=== PATIENT | female | born 1985 | race Caucasian/White ===

== ENCOUNTER 2017-04-21 16:55 | Emergency (ER) | payer OTHER, SELFPAY ==
[2017-04-21 17:27] LABS: Bilirubin Negative (Negative); Blood, Urine Negative (Negative); Clarity Clear (Clear); Glucose, Urine (Dipstick) Negative (Negative); Leukocyte Negative (Negative); Nitrite Negative (Negative); Protein, Urine (Dipstick) Negative (Neg-Trace); Urobilinogen 0.2 mg/dL (0.2-1.0)
[2017-04-21 17:28] LABS: Pregnancy Test - Urine (BHCG) Negative (Negative); Pregu Control Background? CLEAR/WHITE (CLR/WHITE); Pregu Control Bar Appear? YES (CONTROL BAR)
[2017-04-21] MEDS ORDERED: Ketorolac Tromethamine 30 MG/ML VIAL ONE (17:40)
[2017-04-21 18:13] LABS: #Basophils 0.1 thou/uL (0.0-0.2); #Eosinphils 0.1 thou/uL (0.0-0.7); #Lymphocytes 2.9 thou/uL (1.20-3.40); #Monocytes 0.5 thou/uL (0.11-0.59); #Neutrophils 3.3 thou/uL (1.40-6.50); %Basophils 0.9 % (0.0-1.0); %Eosinophils 1.3 % (0.0-10.0); %Lymphocytes 42.6 % (21.0-51.0); %Monocytes 7.2 % (0.0-10.0); Hemoglobin 13.7 g/dL (12.0-16.0); Mean Corpuscular HGB CONC 34.3 g/dL (32.0-36.0); Mean Corpuscular Hemoglobin 30.5 pg (27.0-31.0); Mean Corpuscular Volume 88.9 fl (81.0-99.0); Mean Platelet Volume 8.6 fL (7.4-10.4); Platelet Count 301 thou/uL (130-400); RBC Distribution Width 11.2 % (11.5-14.5); Red Blood Cell (RBC) Count 4.48 mill/uL (4.20-5.40); White Blood Cell (WBC) Count 6.8 thou/uL (4.8-10.8)
[2017-04-21 18:33] LABS: ALT (SGPT) 19 U/L (8-55); AST (SGOT) 17 U/L (5-34); Albumin 4.3 g/dL (3.5-5.0); Alkaline Phosphatase 75 U/L (40-150); Anion Gap 13 mmol/L (10-20); BUN (Urea Nitrogen) 5 mg/dL (7.0-18.7); Bilirubin, Total 0.3 mg/dL (0.2-1.2); Calc. Creatinine Clearance 0 mL/min (70-130); Calcium 8.9 mg/dL (7.8-10.44); Carbon Dioxide 25 mmol/L (22-29); Chloride 105 mmol/L (98-107); Estimated GFR-MDRD 88; Globulin 2.8 g/dL (2.4-3.5); Glucose 86 mg/dL (70-105); Lipase 26 U/L (8-78); Potassium 3.7 mmol/L (3.5-5.1); Protein, Total 7.1 g/dL (6.0-8.3); Sodium 139 mmol/L (136-145)
--- NOTE | 2017-04-21 18:42 | CT ---
CT ABDOMEN AND PELVIS WITHOUT CONTRAST 04/21/17 HISTORY: 31-year-old female with right sided abdominal pain, dysuria. FINDINGS: comparison made with exam dated 07/31/13. The lung bases are clear. The patient is post cholecystectomy. No free air or free fluid is seen in t he abdomen or pelvis. A normal appearing appendix is present. Uterus and ovaries are noted. There is a tiny calculus in the inferior pole of the left kidney. No calculi seen in the right kidney , either ureter or the urinary bladder. No hydroureteronephrosis noted on either side. There are mild degenerative changes in the lower lumbar spine. IMPRESSION: 1. Tiny nonobstructing left renal calculus. 2. No evidence of appendicitis. POS: [facility]
== END 2017-04-21 18:40 | disposition home or self-care (01) ==
LOC: SCSER 16:55
DX: R10.11 Right upper quadrant pain (principal); F41.9 Anxiety disorder, unspecified; F32.9 Major depressive disorder, single episode, unspecified; Z79.899 Other long term (current) drug therapy
CPT/HCPCS: 74176; 80053; 81003; 81025; 83690; 85025; 96372; J1885

== ENCOUNTER 2017-11-01 20:24 | Emergency (ER) | payer OTHER ==
[2017-11-01] MEDS ORDERED: Cyclobenzaprine 10 MG TAB ONE (20:41)
[2017-11-01] MEDS ORDERED: Ibuprofen 200 MG TAB ONE (20:41)
[2017-11-01 21:01] LABS: Bilirubin Negative (Negative); Blood, Urine Negative (Negative); Clarity Clear (Clear); Glucose, Urine (Dipstick) Negative (Negative); Leukocyte Negative (Negative); Nitrite Negative (Negative); Protein, Urine (Dipstick) Negative (Neg-Trace); Specific Gravity, Urine 1.015 (1.005-1.030); Urobilinogen 0.2 mg/dL (0.2-1.0)
--- NOTE | 2017-11-01 21:26 | RAD ---
THREE VIEWS LUMBAR SPINE: 11/01/17 HISTORY: Back pain. Worse yesterday. AP, lateral, and cone down views lumbar spine is obtained. Images demonstrate surgical clips seen in the gallbladder fossa. Five nonribbearing lumbar vertebrae are seen. No evidence of acute fractures o r bony lesions seen. IMPRESSION: Normal three views lumbar spine. POS: [facility]
== END 2017-11-01 21:26 | disposition home or self-care (01) ==
LOC: SCSER 20:24
DX: M54.5 Low back pain (principal)
CPT/HCPCS: 72100; 81003

== ENCOUNTER 2018-03-06 14:44 | Outpatient (CLI) | payer OTHER ==
--- NOTE | 2018-03-06 15:18 | RAD ---
RIGHT FOOT THREE VIEWS: History: Foot pain. FINDINGS: Tarsals appear intact. Tarsal metatarsal alignment is normal. Metatarsals and phalanges appear intact . MTP and IP joints are unremarkable. On the AP projection only, there is an oblique linear lucency extending across the shaft of the proxi mal phalanx of the fifth toe. This was not seen on the oblique or lateral view and is felt to be jonathan factual. However, if there is pain and injury at the right 5th toe, recommend dedicated views of the right 5th toe to further evaluation. IMPRESSION: No evidence of acute abnormality. There is a questionable oblique lucency involving the proximal phal anx of the fifth toe as discussed above. POS: [facility]
== END 2018-03-06 14:45 | disposition home or self-care (01) ==
LOC: RAD-FRANK 14:44
PROVIDERS: ATTEND Nurse Practitioner Family
DX: S99.921A Unspecified injury of right foot, initial encounter (principal)

== ENCOUNTER 2018-04-23 08:11 | Outpatient (CLI) | payer OTHER ==
--- NOTE | 2018-04-23 11:26 | ULT ---
RIGHT BREAST ULTRASOUND: HISTORY: Palpable mass in the retroareolar position of the right breast slightly towards 12 o'clock. COMPARISON: Mammogram of 04/23/2018. TECHNIQUE: Multiplanar, amaya scale, and color Doppler images were obtained in a targeted ultrasound of the right breast. FINDINGS: In the retroareolar position of the right breast at the 12 o'clock position, there is a large anechoi c cyst with increased through transmission measuring 2.4 cm in greatest dimension. This corresponds to the mammographic abnormality. Two smaller adjacent anechoic cysts are seen. No suspicious mass o r shadowing is seen. IMPRESSION: BIRADS category 2 - benign findings. Annual screening mammography is recommended at the age of 40. POS: [facility]
--- NOTE | 2018-04-23 13:42 | MMO ---
MAMMO Bilat Diag [facility]AVED. CLINICAL HISTORY: Patient is 32 years old and is seen for diagnostic exam and lump or thickening in the right breast. The patient has no family history of breast cancer. The patient has no personal history of cancer. VIEWS: The views performed were: bilateral craniocaudal with tomosynthesis; bilateral mediolateral oblique with tomosynthesis; bilateral mediolateral; and bilateral exaggerated craniocaudal. FILMS COMPARED: The present examination has been compared to a prior imaging study performed at [facility] on 04/23/2018. MAMMOGRAM FINDINGS: There are scattered fibroglandular densities. There is a round mass with circumscribed margins seen in the central region of the right breast. The mass was shown to be a cyst on ultrasound. There are no suspicious masses, calcifications or areas of architectural distortion. IMPRESSION: MASS IN THE RIGHT BREAST IS BENIGN. A ROUTINE FOLLOW-UP MAMMOGRAM AT AGE 39 IS RECOMMENDED. THE RESULTS OF THIS EXAM WERE SENT TO THE PATIENT. ACR BI-RADS Category 2 - Benign finding MAMMOGRAPHY NOTE: 1. A negative mammogram report should not delay a biopsy if a dominant of clinically suspicious mass is present. 2. Approximately 10% to 15% of breast cancers are not detected by mammography. 3. Adenosis and dense breasts may obscure an underlying neoplasm.
== END 2018-04-23 08:12 | disposition home or self-care (01) ==
LOC: BICMAMMO 08:11
DX: N63.10 Unspecified lump in the right breast, unspecified quadrant (principal)
CPT/HCPCS: 77066; G0279

== ENCOUNTER 2019-03-07 07:48 | Outpatient (CLI) | payer OTHER ==
--- NOTE | 2019-03-07 09:30 | CT ---
CT ABDOMEN AND PELVIS WITH AND WITHOUT CONTRAST: Date: 03/07/2019 INDICATION: Lower abdominal pain. History of hysterectomy and cholecystectomy. Comparison made to CT scan abdomen and pelvis without contrast dated 04/21/2017. FINDINGS: Lung bases are clear. Liver, spleen, and pancreas are unremarkable. Stomach and duodenum unremarkable. Adrenal glands appear normal. Kidneys unremarkable. There is a tiny nonobstructing calculus in the upper pole collecting structures of the left kidney, w hich was present in 2018, and measures in the 2-3 mm range. No obstructing ureteral calculus. No hydr onephrosis. Urinary bladder is mildly distended and unremarkable in appearance. Small bowel loops appear normal. Colon unremarkable. Aorta normal caliber. Nonspecific retroperitonea l lymph nodes have a similar appearance to the prior study. Images through the pelvis show evidence of hysterectomy. IMPRESSION: 1. Tiny, nonobstructing calculus in the upper collecting structures of the left kidney, stable from 2018. 2. No acute intra-abdominal process identified. POS: [facility]
[2019-03-07] MEDS ORDERED: Iopamidol-370 76% 500 ML 1 ML ONE (14:26)
== END 2019-03-07 07:49 | disposition home or self-care (01) ==
LOC: BICCT 07:48
PROVIDERS: ATTEND Obstetrics & Gynecology
DX: K40.90 Unilateral inguinal hernia, without obstruction or gangrene, not specified as recurrent (principal); N20.0 Calculus of kidney
CPT/HCPCS: 74178; Q9967

== ENCOUNTER 2020-03-07 16:11 | Emergency (ER) | payer OTHER, SELFPAY ==
[2020-03-07] MEDS ORDERED: Morphine 4 MG/ML VIAL ONE (16:47)
[2020-03-07] MEDS ORDERED: Ondansetron PF 4 MG/2 ML Vial ONE (16:47)
[2020-03-07 16:50] LABS: #Basophils 0.1 thou/uL (0.0-0.2); #Eosinphils 0.1 thou/uL (0.0-0.7); #Lymphocytes 3.4 thou/uL (1.20-3.40); #Monocytes 0.5 thou/uL (0.11-0.59); #Neutrophils 3.9 thou/uL (1.40-6.50); %Basophils 0.8 % (0.0-1.0); %Eosinophils 0.9 % (0.0-10.0); %Lymphocytes 42.9 % (21.0-51.0); %Monocytes 5.8 % (0.0-10.0); %Neutrophils 49.6 % (42.0-75.0); Hemoglobin 14.5 g/dL (12.0-16.0); Mean Corpuscular HGB CONC 33.7 g/dL (32.0-36.0); Mean Corpuscular Hemoglobin 30.7 pg (27.0-31.0); Mean Corpuscular Volume 90.9 fL (78.0-98.0); Mean Platelet Volume 7.5 fL (7.4-10.4); Platelet Count 336 thou/uL (130-400); RBC Distribution Width 11.6 % (11.5-14.5); Red Blood Cell (RBC) Count 4.71 mill/uL (4.20-5.40); White Blood Cell (WBC) Count 7.8 thou/uL (4.8-10.8)
[2020-03-07 16:50] LABS: Bilirubin Negative (Negative); Blood, Urine Negative (Negative); Clarity Clear (Clear); Glucose, Urine (Dipstick) Normal (Negative); Ketone, Urine Negative (Negative); Leukocyte Negative Leu/uL (Negative); Nitrite Negative (Negative); Protein, Urine (Dipstick) Negative (Neg-Trace); Specific Gravity, Urine 1.004 (1.002-1.036); Urobilinogen Normal mg/dL (Less than 2)
[2020-03-07 17:10] LABS: ALT (SGPT) 16 U/L (8-55); AST (SGOT) 19 U/L (5-34); Albumin 4.7 g/dL (3.5-5.0); Alkaline Phosphatase 100 U/L (40-110); Anion Gap 15 mmol/L (10-20); BUN (Urea Nitrogen) 12 mg/dL (7.0-18.7); Bilirubin, Total 0.5 mg/dL (0.2-1.2); Calc. Creatinine Clearance 0 mL/min (70-130); Calcium 9.3 mg/dL (7.8-10.44); Carbon Dioxide 26 mmol/L (22-29); Chloride 103 mmol/L (98-107); Glucose 97 mg/dL (70-105); Lipase 37 U/L (8-78); Potassium 3.8 mmol/L (3.5-5.1); Protein, Total 7.7 g/dL (6.0-8.3); Sodium 140 mmol/L (136-145)
[2020-03-07] MEDS ORDERED: Lidocaine Viscous Sol 2% 15 ml UD Cup ONE (17:28)
[2020-03-07] MEDS ORDERED: Mag-Al 1200 mg/1200 mg/30 ML UDCUP ONE (17:28)
--- NOTE | 2020-03-07 17:30 | CT ---
CT abdomen and pelvis with IV contrast HISTORY: Abdomen pain. Hematochezia. COMPARISON: 03/07/2019. FINDINGS: The lung bases are clear. Gallbladder is surgically absent. Mild associated distention of t he biliary system. The tiny left renal calculus described on prior CT is not visible on this exam, likely obscured by ar terial contrast. No hydronephrosis. No evidence of bowel obstruction. Appendix is unremarkable. There is subtle circumferential wall thic kening of the decompressed lower left colon, sigmoid colon, and rectum with very subtle stranding in the adjacent fat. No free fluid. Uterus is surgically absent. Urinary bladder within normal limits. IMPRESSION : Very subtle inflammatory change of the distal colon/rectum. Correlate for infectious colitis.
[2020-03-07 18:36] LABS: Pregnancy Test - Urine (BHCG) Negative (Negative); Pregu Control Background? CLEAR/WHITE (CLR/WHITE); Pregu Control Bar Appear? YES (CONTROL BAR); Specific Gravity 1.004 (1.002-1.036)
== END 2020-03-07 18:07 | disposition home or self-care (01) ==
LOC: ERS 16:11
DX: A09 Infectious gastroenteritis and colitis, unspecified (principal)
CPT/HCPCS: 36415; 74177; 80053; 81003; 81025; 83690; 85025; 96374; 96375; J2270; J2405

== ENCOUNTER 2021-07-26 15:19 | Emergency (ER) | payer SELFPAY ==
[2021-07-26 16:15] LABS: #Basophils 0.1 thou/uL (0.0-0.2); #Eosinphils 0.1 thou/uL (0.0-0.7); #Lymphocytes 3.2 thou/uL (1.20-3.40); #Monocytes 0.5 thou/uL (0.11-0.59); #Neutrophils 3.8 thou/uL (1.40-6.50); %Eosinophils 1.7 % (0.0-10.0); %Lymphocytes 41.4 % (21.0-51.0); %Monocytes 6.7 % (0.0-10.0); %Neutrophils 49.3 % (42.0-75.0); Hemoglobin 13.6 g/dL (12.0-16.0); Mean Corpuscular HGB CONC 34.2 g/dL (32.0-36.0); Mean Corpuscular Hemoglobin 30.4 pg (27.0-31.0); Mean Corpuscular Volume 88.8 fL (78.0-98.0); Platelet Count 332 thou/uL (130-400); RBC Distribution Width 11.9 % (11.5-14.5); Red Blood Cell (RBC) Count 4.49 mill/uL (4.20-5.40); White Blood Cell (WBC) Count 7.7 thou/uL (4.8-10.8)
[2021-07-26 16:39] LABS: ALT (SGPT) 34 U/L (8-55); AST (SGOT) 24 U/L (5-34); Albumin 4.5 g/dL (3.5-5.0); Alkaline Phosphatase 110 U/L (40-110); Anion Gap 14 mmol/L (10-20); BUN (Urea Nitrogen) 8 mg/dL (7.0-18.7); Bilirubin, Total 0.4 mg/dL (0.2-1.2); Calc. Creatinine Clearance 0 mL/min (70-130); Calcium 9.2 mg/dL (7.8-10.44); Carbon Dioxide 25 mmol/L (22-29); Chloride 105 mmol/L (98-107); Globulin 3.1 g/dL (2.4-3.5); Glucose 102 mg/dL (70-105); Lipase 37 U/L (8-78); Potassium 3.8 mmol/L (3.5-5.1); Protein, Total 7.6 g/dL (6.0-8.3); Sodium 140 mmol/L (136-145)
== END 2021-07-26 19:27 | disposition home or self-care (01) ==
LOC: ERS 15:19
DX: G62.9 Polyneuropathy, unspecified (principal)
CPT/HCPCS: 36415; 71045; 80053; 83690; 84484; 85025; 93005; 93970

== ENCOUNTER 2021-10-02 21:07 | Observation (INO) | payer SELFPAY ==
[~2021-10-02 21:07] MED LIST: Iopamidol-370 76% 500 ML 1 ML ONE
[2021-10-02] MEDS ORDERED: Lorazepam (BATCHED) 2 MG/ML SYR ONE (21:43)
[2021-10-02 21:52] LABS: BHCG - Serum Negative (NEGATIVE); Pregs Control Background? CLEAR/WHITE (CLR/WHITE); Pregs Control Bar Appear? YES (CONTROL BAR)
[2021-10-02 21:53] LABS: Hemoglobin 13.5 g/dL (12.0-16.0); Mean Corpuscular HGB CONC 34.5 g/dL (32.0-36.0); Mean Corpuscular Hemoglobin 30.1 pg (27.0-31.0); Mean Corpuscular Volume 87.2 fL (78.0-98.0); Mean Platelet Volume 7.5 fL (7.4-10.4); Platelet Count 402 thou/uL (130-400); RBC Distribution Width 12.2 % (11.5-14.5); White Blood Cell (WBC) Count 11.1 thou/uL (4.8-10.8)
[2021-10-02 22:06] LABS: ALT (SGPT) 62 U/L (8-55); AST (SGOT) 39 U/L (5-34); Albumin 4.8 g/dL (3.5-5.0); Alcohol 47 mg/dL (Less than 10); Alkaline Phosphatase 114 U/L (40-110); Anion Gap 18 mmol/L (10-20); BUN (Urea Nitrogen) 8 mg/dL (7.0-18.7); Bilirubin, Total 0.3 mg/dL (0.2-1.2); Calc. Creatinine Clearance 0 mL/min (70-130); Calcium 9.8 mg/dL (7.8-10.44); Carbon Dioxide 21 mmol/L (22-29); Chloride 105 mmol/L (98-107); Estimated GFR 66; Glucose 130 mg/dL (70-105); Potassium 3.1 mmol/L (3.5-5.1); Protein, Total 7.8 g/dL (6.0-8.3); Sodium 141 mmol/L (136-145)
[2021-10-02 22:09] LABS: Band 3 % (5-11); Lymphocytes 51 % (21-51); MDiff Complete? YES; Neutrophil 43 % (42-75); Platelet Morphology Comment Appears Adequate; RBC Morphology Normal; Reactive Lymphocytes 3 % (0-10)
[2021-10-02] MEDS ORDERED: Potassium Chloride 20 MEQ TAB ONE (22:58)
[2021-10-02] MEDS ORDERED: Magnesium 2 GM/50 ML BAG (IN WATER) ONE (22:58)
[2021-10-02] MEDS ORDERED: Metoclopramide HCl 10 MG/2 ML VIAL ONE (23:25)
[2021-10-02] MEDS ORDERED: Metoprolol Tartrate 5 MG/5 ML VIAL ONE ×2 (23:25→23:47)
[2021-10-02] MEDS ORDERED: Adenosine 6 MG/2 ML VIAL ONE (23:29)
[2021-10-02] MEDS ORDERED: Ondansetron PF 4 MG/2 ML Vial IVP PRN (23:57)
[2021-10-03] LABS: Amphetamine Not Detected (NotDetected); Barbiturates Screen Not Detected (NotDetected); Benzodiazepine Screen Not Detected (NotDetected); Cocaine Metabolite Screen Not Detected (NotDetected); Methadone Not Detected (NotDetected); Methamphetamine Not Detected (NotDetected); Opiate Screen Not Detected (NotDetected); Oxycodone Screen Not Detected (NotDetected); Phencyclidine (PCP) Not Detected (NotDetected); THC/Cannabinoid Screen Detected (NotDetected); Tricyclic Screen Not Detected (NotDetected)
[2021-10-03 00:09] LABS: Bilirubin Negative (Negative); Blood, Urine Negative (Negative); Clarity Clear (Clear); Glucose, Urine (Dipstick) Normal (Negative); Ketone, Urine Negative (Negative); Leukocyte Negative Leu/uL (Negative); Nitrite Negative (Negative); Protein, Urine (Dipstick) Negative (Neg-Trace); Specific Gravity, Urine 1.005 (1.002-1.036); Urobilinogen Normal mg/dL (Less than 2); pH, Urine 6.5 (5.0-9.0)
[2021-10-03] MEDS ORDERED: Acetaminophen 325 MG TAB PO PRN (00:15)
[2021-10-03] MEDS ORDERED: Lorazepam 2 MG/ML VIAL IM PRN (00:20)
[2021-10-03] MEDS ORDERED: Ondansetron ODT 4 MG TAB PO PRN (00:20)
[2021-10-03] MEDS ORDERED: Lorazepam 1 MG TAB PO PRN (00:20)
[2021-10-03 00:27] LABS: Magnesium 1.9 mg/dL (1.6-2.6)
[2021-10-03] MEDS ORDERED: Electrolyte Replacement Protocol 1 EACH FS SCH (00:30)
[2021-10-03 02:26] LABS: #Lymphocytes 2.4 thou/uL (1.20-3.40); #Monocytes 0.3 thou/uL (0.11-0.59); #Neutrophils 5.2 thou/uL (1.40-6.50); %Basophils 0.2 % (0.0-1.0); %Eosinophils 0.3 % (0.0-10.0); %Lymphocytes 30.1 % (21.0-51.0); %Monocytes 3.9 % (0.0-10.0); %Neutrophils 65.5 % (42.0-75.0); Hemoglobin 13.1 g/dL (12.0-16.0); Mean Corpuscular Hemoglobin 30.8 pg (27.0-31.0); Mean Corpuscular Volume 88.2 fL (78.0-98.0); Mean Platelet Volume 7.5 fL (7.4-10.4); Platelet Count 332 thou/uL (130-400); RBC Distribution Width 12.4 % (11.5-14.5); Red Blood Cell (RBC) Count 4.23 mill/uL (4.20-5.40); White Blood Cell (WBC) Count 7.9 thou/uL (4.8-10.8)
[2021-10-03 02:37] LABS: Hemoglobin A1c 5.2 % (4.0-6.0)
[2021-10-03 02:47] LABS: ALT (SGPT) 53 U/L (8-55); AST (SGOT) 32 U/L (5-34); Albumin 4.1 g/dL (3.5-5.0); Alkaline Phosphatase 103 U/L (40-110); Anion Gap 14 mmol/L (10-20); BUN (Urea Nitrogen) 6 mg/dL (7.0-18.7); Bilirubin, Total 0.3 mg/dL (0.2-1.2); Calc. Creatinine Clearance 0 mL/min (70-130); Calcium 8.5 mg/dL (7.8-10.44); Carbon Dioxide 20 mmol/L (22-29); Chloride 111 mmol/L (98-107); Estimated GFR 89; Globulin 2.6 g/dL (2.4-3.5); Glucose 113 mg/dL (70-105); Magnesium 2.4 mg/dL (1.6-2.6); Potassium 4.4 mmol/L (3.5-5.1); Protein, Total 6.7 g/dL (6.0-8.3); Sodium 141 mmol/L (136-145)
[2021-10-03 02:51] LABS: Troponin I Less than 0.010 ng/mL (< 0.028)
[2021-10-03 05:02] VITALS: BMI 25.1
[2021-10-03 05:33] LABS: Troponin I Less than 0.010 ng/mL (< 0.028)
[2021-10-03] MEDS ORDERED: Thiamine HCl 200 MG/2 ML VIAL SLOW IVP SCH (09:00)
[2021-10-03] MEDS ORDERED: Enoxaparin Sodium 40 MG/0.4 ML SYRINGE SC SCH (09:00)
[2021-10-03] MEDS ORDERED: Folic Acid 1 MG TAB PO SCH (09:00)
[2021-10-03] MEDS ORDERED: Multivit, Therapeutic 1 TAB PO SCH (09:00)
[2021-10-03 09:49] VITALS: BP 118/81; TEMP 98.1
[2021-10-04] MEDS ORDERED: Lorazepam 1 MG TAB PO PRN (00:20)
[2021-10-05] MEDS ORDERED: Lorazepam 1 MG TAB PO PRN (00:20)
[2021-10-06] MEDS ORDERED: Lorazepam 0.5 MG TAB PO PRN (00:20)
[2021-10-06] MEDS ORDERED: Thiamine 100 MG TAB PO SCH (09:00)
== END 2021-10-03 11:00 | disposition home or self-care (01) ==
LOC: ERS 21:07 → 2NO 23:49 → INTOOBSV 23:49 → ERHOLD 10-03 01:02 → 2NO 10-03 03:42
PROVIDERS: ADMIT Student in an Organized Health Care Education/Training Program; ATTEND Student in an Organized Health Care Education/Training Program
DX: T40.711A Poisoning by cannabis, accidental (unintentional), initial encounter (principal); R00.0 Tachycardia, unspecified; E87.6 Hypokalemia; R79.89 Other specified abnormal findings of blood chemistry; F10.920 Alcohol use, unspecified with intoxication, uncomplicated; U07.1 COVID-19; R51.9 Headache, unspecified; R35.0 Frequency of micturition; Z88.5 Allergy status to narcotic agent; Y90.2 Blood alcohol level of 40-59 mg/100 ml
CPT/HCPCS: 36415; 71045; 71275; 80053; 80306; 80307; 81003; 83036; 83735; 84443; 84484; 84703; 85025; 93005; 96361; 96365; 96375; J0153; J2060; J2765; J3411; J3475; Q9967; U0003; U0005

== ENCOUNTER 2023-02-26 23:07 | Emergency (ER) | payer SELFPAY ==
[~2023-02-26 23:07] MED LIST changes: +Iopamidol 370 76% 100 ML VIAL ONE; -Iopamidol-370 76% 500 ML 1 ML ONE
[2023-02-26 23:43] LABS: #Eosinphils 0.1 thou/uL (0.0-0.7); #Monocytes 0.5 thou/uL (0.11-0.59); #Neutrophils 5.6 thou/uL (1.40-6.50); %Basophils 0.3 % (0.0-1.0); %Eosinophils 0.9 % (0.0-10.0); %Lymphocytes 39.3 % (21.0-51.0); %Monocytes 4.5 % (0.0-10.0); %Neutrophils 54.7 % (42.0-75.0); Hemoglobin 12.4 g/dL (12.0-16.0); Mean Corpuscular HGB CONC 33.5 g/dL (32.0-36.0); Mean Corpuscular Hemoglobin 29.6 pg (27.0-31.0); Mean Corpuscular Volume 88.3 fl (78.0-98.0); Platelet Count 332 10x3/uL (130-400); RBC Distribution Width 13.5 % (11.5-14.5); Red Blood Cell (RBC) Count 4.19 mill/uL (4.20-5.40); White Blood Cell (WBC) Count 10.3 10x3/uL (4.8-10.8)
[2023-02-26] MEDS ORDERED: Famotidine/PF 20 mg/2ml Vial ONE (23:55)
[2023-02-26] MEDS ORDERED: fentaNYL 50 mcg/mL 1 mL Vial ONE (23:55)
[2023-02-27 00:08] LABS: ALT (SGPT) 66 U/L (8-55); AST (SGOT) 26 U/L (5-34); Albumin 4.2 g/dL (3.5-5.0); Alkaline Phosphatase 120 U/L (40-110); Anion Gap 15 mmol/L (10-20); BUN (Urea Nitrogen) 7 mg/dL (7.0-18.7); Bilirubin, Total 0.4 mg/dL (0.2-1.2); Calc. Creatinine Clearance 0 mL/min (70-130); Calcium 8.6 mg/dL (7.8-10.44); Carbon Dioxide 24 mmol/L (22-29); Chloride 104 mmol/L (98-107); Estimated GFR 92; Globulin 2.5 g/dL (2.4-3.5); Glucose 113 mg/dL (70-105); Magnesium 1.9 mg/dL (1.6-2.6); Potassium 3.2 mmol/L (3.5-5.1); Protein, Total 6.7 g/dL (6.0-8.3); Sodium 140 mmol/L (136-145)
[2023-02-27 00:12] LABS: BHCG - Serum Negative (NEGATIVE); Pregs Control Background? CLEAR/WHITE (CLR/WHITE); Pregs Control Bar Appear? YES (CONTROL BAR)
[2023-02-27 00:13] LABS: Troponin I Less than 0.010 ng/mL (< 0.028)
[2023-02-27] MEDS ORDERED: Potassium Chloride 20 MEQ TAB ONE (00:16)
[2023-02-27] MEDS ORDERED: Ketorolac Tromethamine 30 MG (1 mL) VIAL ONE (00:17)
[2023-02-27 02:07] LABS: Troponin I Less than 0.010 ng/mL (< 0.028)
== END 2023-02-27 02:46 | disposition home or self-care (01) ==
LOC: ERS 23:07
DX: E87.6 Hypokalemia (principal); R07.89 Other chest pain
CPT/HCPCS: 36415; 71045; 71275; 74174; 80053; 83735; 83880; 84484; 84703; 85025; 93005; 96374; 96375; J1885; J3010; Q9967; S0028

== ENCOUNTER 2024-01-01 16:48 | Emergency (ER) | payer SELFPAY ==
[~2024-01-01 16:48] MED LIST changes: -Iopamidol 370 76% 100 ML VIAL ONE; +Iopamidol-370 76% 500 ML MDV (1 ML CHARGE) ONE
[2024-01-01 17:37] LABS: #Basophils 0.03 10x3/uL (0.0-0.2); %Basophils 0.3 % (0.0-1.0); %Eosinophils 0.9 % (0.0-10.0); %Monocytes 5.7 % (0.0-10.0); %Neutrophils 44.9 % (42.0-75.0); Hematocrit 38.3 % (36.0-47.0); Hemoglobin 12.9 g/dL (12.0-16.0); Mean Corpuscular HGB CONC 33.7 g/dL (32.0-36.0); Mean Corpuscular Hemoglobin 28.7 pg (27.0-31.0); Mean Corpuscular Volume 85.3 fL (78.0-98.0); Platelet Count 338 10x3/uL (130-400); RBC Distribution Width 13.1 % (11.5-14.5); Red Blood Cell (RBC) Count 4.49 mill/uL (4.20-5.40)
[2024-01-01 17:57] LABS: ALT (SGPT) 53 U/L (8-55); AST (SGOT) 36 U/L (5-34); Albumin 4.1 g/dL (3.5-5.0); Alkaline Phosphatase 103 U/L (40-110); Anion Gap 12 mmol/L (10-20); BUN (Urea Nitrogen) 6 mg/dL (7.0-18.7); Bilirubin, Total 0.3 mg/dL (0.2-1.2); Calc. Creatinine Clearance 0 mL/min (70-130); Calcium 8.9 mg/dL (7.8-10.44); Carbon Dioxide 23 mmol/L (22-29); Chloride 108 mmol/L (98-107); Estimated GFR 79; Globulin 3.2 g/dL (2.4-3.5); Glucose 101 mg/dL (70-105); Potassium 3.8 mmol/L (3.5-5.1); Protein, Total 7.3 g/dL (6.0-8.3); Sodium 139 mmol/L (136-145)
[2024-01-01 17:58] LABS: Bilirubin Negative (Negative); Blood, Urine Negative (Negative); CAUTI Indications for Culture Pelvic or flank pain; Clarity Clear (Clear); Glucose, Urine (Dipstick) Normal (Negative); Ketone, Urine Negative (Negative); Leukocyte 25 Leu/uL (Negative); Nitrite Negative (Negative); Protein, Urine (Dipstick) Negative (Neg-Trace); RBC/HPF 0-3 HPF (0-3); Squamous Epithelial 0-3 HPF (0-3); Urobilinogen Normal mg/dL (Less than 2); pH, Urine 6.5 (5.0-9.0)
[2024-01-01 18:01] LABS: Bacteria/HPF 1+ HPF (None Seen)
[2024-01-01 18:02] LABS: Urine Culture Reflex No No
[2024-01-01] MEDS ORDERED: Ketorolac Tromethamine 30 MG (1 mL) VIAL ONE (18:16)
== END 2024-01-01 18:34 | disposition home or self-care (01) ==
LOC: ERS 16:48
DX: K64.4 Residual hemorrhoidal skin tags (principal)
CPT/HCPCS: 36415; 74177; 80053; 81001; 83690; 85025; 96374; J1885; Q9967